=== PATIENT | female | born 1975 | race Caucasian/White ===

== ENCOUNTER 2022-06-02 09:49 | Emergency (ER) | payer OTHER ==
[~2022-06-02] VITALS: Ht 157.5 cm; Wt 62.1 kg
[2022-06-02 09:50] VITALS: BP_SYST 124
--- NOTE | 2022-06-02 09:50 | NUR ---
BROUGHT BACK TO BED #4 AND TRIAGED. REPORT GIVEN TO PADDY
--- NOTE | 2022-06-02 10:03 | NUR ---
ER at bedside examining patient.
--- NOTE | 2022-06-02 10:07 | NUR ---
pt presents to ed with report of lower back pain radiating down to right leg. pt renies any recent falls / injuries. pt denies any heavy lifiting for abnormal movements. pt reports pain x 2 days and worsens with movement. pt is a/o x4 and verbally responsive. no acute distess noted. breathing even and unlabored. speaks clear and full sentences
[2022-06-02] MEDS ORDERED: KETOROLAC TROMETHAMINE 30 MG VIAL IM ONE (10:15)
--- NOTE | 2022-06-02 10:20 | NUR ---
PT TO XRAY
--- NOTE | 2022-06-02 11:54 | NUR ---
awaiting urine results, called lab and stated "we are processing it now". md solitario made aware
[2022-06-02 12:02] LABS: BILIRUBIN,URINE NEGATIVE (NEGATIVE); BLOOD, URINE NEGATIVE (NEGATIVE); COLOR,URINE YELLOW (YELLOW); GLUCOSE,URINE NEGATIVE (NEGATIVE); KETONES,URINE NEGATIVE (NEGATIVE); LEUKOCYTE ESTERASE ,URINE NEGATIVE (NEGATIVE); NITRITE, URINE NEGATIVE (NEGATIVE); PH,URINE 5.5 (5.0-8.0); PROTEIN URINE NEGATIVE (NEGATIVE); UROBILINOGEN,URINE 0.2 (0.2-1.0)
[2022-06-02 12:03] LABS: CLARITY/URINE CLEAR (CLEAR)
[2022-06-02] MEDS ORDERED: TRAM50TA2 PO (12:41)
[2022-06-02] MEDS ORDERED: METH-634 PO (12:41)
[2022-06-02] MEDS ORDERED: MORPHINE 4 MG INJ. 4 MG/ML VIAL IM ONE (12:45)
--- NOTE | 2022-06-02 13:08 | NUR ---
pt continues to report 10/10 pain, reports medication given earlier was ineffective, altaf aware. medication administered via IM as per emar. tolerated well.
[2022-06-02 13:21] VITALS: BP_SYST 112
--- NOTE | 2022-06-02 13:31 | NUR ---
DISCHARGE INSTRUCTIONS REVIEWED WITH PT, PT VERBALIZED UNDERSTANDING AND DENIED ANY QUESTIONS. PT AMBULATED FROM ED WITH STEADY GAIT.
== END 2022-06-02 13:31 | disposition home or self-care (01) ==
LOC: SED 09:49
DX: S39.012A Strain of muscle, fascia and tendon of lower back, initial encounter (principal); Z88.5 Allergy status to narcotic agent; Z79.899 Other long term (current) drug therapy; X58.XXXA Exposure to other specified factors, initial encounter; Y93.89 Activity, other specified; Y92.89 Other specified places as the place of occurrence of the external cause; Y99.8 Other external cause status
CPT/HCPCS: 99284; 72100; 96372; 81003; J1885; J2270